=== PATIENT | female | born 1940 ===

== ENCOUNTER 2018-06-22 13:15 | Inpatient (IN) | payer OTHER ==
[~2018-06-22] VITALS: Ht 152.4 cm; Wt 59.0 kg
[2018-07-01] MEDS ORDERED: DOCUSATE SODIU100 MG PO (12:06)
[2018-07-01] MEDS ORDERED: CLONAZEPAM0.5 M1 PO (12:07)
[2018-07-01] MEDS ORDERED: PERCOCET 5-3251 EACH PO (12:07)
== END 2018-07-02 19:57 | disposition home or self-care (01) | DRG 454 ==
LOC: O/R 07-01 05:12 → SURH 07-01 05:12
PROVIDERS: ADMIT Orthopaedic Surgery Orthopaedic Surgery of the Spine
PROC: 0RG2071 Fusion of 2 or more Cervical Vertebral Joints with Autologous Tissue Substitute, Posterior Approach, Posterior Column, Open Approach (ICD-10-PCS; 2018-07-01)
PROC: 0RT30ZZ Resection of Cervical Vertebral Disc, Open Approach (ICD-10-PCS; 2018-07-01)
PROC: 07DS3ZZ Extraction of Vertebral Bone Marrow, Percutaneous Approach (ICD-10-PCS; 2018-07-01)
PROC: 0RG20A0 Fusion of 2 or more Cervical Vertebral Joints with Interbody Fusion Device, Anterior Approach, Anterior Column, Open Approach (ICD-10-PCS; principal; 2018-07-01 07:00)
DX: M47.12 Other spondylosis with myelopathy, cervical region (principal); M50.023 Cervical disc disorder at C6-C7 level with myelopathy; I10 Essential (primary) hypertension